=== PATIENT | male | born 1945 | race African-American/Black ===

== ENCOUNTER 2019-07-16 15:13 | Emergency (ER) | payer MEDICARE ==
[~2019-07-16] VITALS: Ht 180.3 cm; Wt 68.0 kg
--- NOTE | 2019-07-16 15:30 | NUR ---
ED Nurse Note: Pt brought into ED from home by ambulance. Pt c/o weakness, failure to thrive, decreased appetite. Pt a&ox4, pt set up on monitor. notified that pt HR 134 and RR 35, BP 134/78, 02 95%nc2. Pt
[2019-07-16 15:40] VITALS: BP 135/69
[2019-07-16 16:14] LABS: BASOPHILS % (AUTO) 0.8 % (0.0-2.0); HEMATOCRIT 31.5 % (42.0-52.0); HEMOGLOBIN 10.4 G/DL (14.2-18.0); LYMPHOCYTES % (AUTO) 7.2 % (20.0-45.0); MEAN CORPUSCULAR VOLUME 84 FL (80-99); PLATELET COUNT 456 K/UL (150-450); RED BLOOD COUNT 3.76 M/UL (4.70-6.10); WHITE BLOOD COUNT 7.9 K/UL (4.8-10.8)
--- NOTE | 2019-07-16 16:14 | Emergency Room Report ---
History of Present Illness General Chief Complaint: Generalized Weakness Source: Patient Present Illness HPI Disclaimer: Please note that this report is being documented using [employer] technology. This can lead to erroneous entry secondary to incorrect interpretation by the dictating instrument. HPI: 73-year-old male with no reported medical history resents for evaluation of dehydration and weakness. Patient reports weakness for approximately 7 days worsening making now difficult to ambulate. He denies any fever, chills, chest pain, vomiting, diarrhea. He notes it is difficult to walk up and down the stairs now and has a pain in the left thigh. There is no reported injury or fall. Per EMS, his landlord states he has been deteriorating over the past 6 months with significant weight loss. She suspects he is not taking care of himself, not eating, constantly losing weight. The patient states that he eats when he feels like it and does continue to drink fluids. He does endorse the weight loss. EMS found him tachycardic and tachypneic. He was started on oxygen as he was found hypoxic at 90%. Patient did not receive a flu shot this year. He reports a nonproductive cough occasionally. PMH: Patient denies PSH: Patient denies Allergies: Patient denies Social Hx: Denies Allergies: Coded Allergies: No Known Allergies (Unverified , 07/16/19) Nursing Documentation-PMH Past Medical History: No Stated History Review of Systems All Other Systems: negative except mentioned in HPI Physical Exam Vital Signs Date Time Temp Pulse Resp B/P (MAP) Pulse Ox O2 Delivery O2 Flow Rate FiO2 07/16/19 15:07 98.1 140 18 140/70 (93) 98 Nasal Cannula 4.0 General: Awake and alert, cachectic, frail-appearing HEENT: NC/AT. EOMI. anicteric sclera. Dry mucous membranes Cardiovascular: Tachycardic. S1 and S2 normal. No murmur appreciated Resp: Tachypnea, mild increased work of breathing. On nasal cannula 4 L. 99%. No cough, wheezing or crackles appreciated Abdomen: Abdomen is soft, nondistended. Nontender Skin: Intact. No abrasions, laceration or rash over the exposed skin MSK: Decreased bulk globally, cachectic.. Moving all extremities. No obvious deformity. No obvious deformity in the left lower extremity appreciated. No tenderness with palpation. Neuro: Awake and alert. Mentating appropriately. Procedures Critical Care Time Critical Care Time Total critical care time: Approximately 31 minutes Due to a high probability of clinically significant, life threatening deterioration, the patient required the highest level of preparedness to intervene emergently and I personally spent this critical care time directly and personally managing the patient. This critical care time included obtaining a history, examining the patient, pulse oximetry, ordering and reviewing studies , ordering treatments, evaluating response to treatment and updating management plan as needed, frequent reassessment and discussion with other providers as well as arranging for ultimate disposition. This critical to care time was performed to assess and manage the high probability of life-threatening deterioration that could result in multiorgan failure. This critical care time is separate from the separately billable procedures and treating other patients. Medical Decision Making Diagnostic Impression: Primary Impression: Pneumonia Additional Impressions: Lactic acidosis Hypoxia Weight loss ER Course 73-year-old male presents for evaluation of 1 week worsening weakness and reported weight loss of 6 months. He is frail-appearing, cachectic, tachycardic and tachypneic. EMS found him hypoxic at 90% which improved with supplemental oxygen. Patient notes a nonproductive cough and some shortness of breath as well as exertional dyspnea lately. Differential includes was not limited to ACS, malnutrition, dehydration, sepsis, pneumonia, bronchitis, influenza. We will start a broad metabolic and infectious work-up. IV fluids are started at 30 cc/kg. Patient is afebrile. He is comfortable on nasal cannula though remains tachypneic. He will require admission. Laboratory Tests Test 07/16/19 16:00 07/16/19 17:21 07/16/19 18:30 White Blood Count 7.9 K/UL (4.8-10.8) Red Blood Count 3.76 M/UL (4.70-6.10) L Hemoglobin 10.4 G/DL (14.2-18.0) L Hematocrit 31.5 % (42.0-52.0) L Mean Corpuscular Volume 84 FL (80-99) Mean Corpuscular Hemoglobin 27.5 PG (27.0-31.0) Mean Corpuscular Hemoglobin Concent 32.9 G/DL (32.0-36.0) Red Cell Distribution Width 13.0 % (11.6-14.8) Platelet Count 456 K/UL (150-450) H Mean Platelet Volume 5.3 FL (6.5-10.1) L Neutrophils (%) (Auto) 84.0 % (45.0-75.0) H Lymphocytes (%) (Auto) 7.2 % (20.0-45.0) L Monocytes (%) (Auto) 8.0 % (1.0-10.0) Eosinophils (%) (Auto) 0.0 % (0.0-3.0) Basophils (%) (Auto) 0.8 % (0.0-2.0) Sodium Level 145 MMOL/L (136-145) Potassium Level 3.6 MMOL/L (3.5-5.1) Chloride Level 106 MMOL/L (98-107) Carbon Dioxide Level 29 MMOL/L (21-32) Anion Gap 10 mmol/L (5-15) Blood Urea Nitrogen 24 mg/dL (7-18) H Creatinine 1.2 MG/DL (0.55-1.30) Estimate Glomerular Filtration Rate mL/min (>60) Glucose Level 144 MG/DL (74-106) H Lactic Acid Level 4.30 mmol/L (0.4-2.0) H 2.00 mmol/L (0.66-2.22) Calcium Level 8.5 MG/DL (8.5-10.1) Phosphorus Level 3.6 MG/DL (2.5-4.9) Magnesium Level 2.9 MG/DL (1.8-2.4) H Total Bilirubin 0.6 MG/DL (0.2-1.0) Aspartate Amino Transferase (AST) 31 U/L (15-37) Alanine Aminotransferase (ALT) 22 U/L (12-78) Alkaline Phosphatase 116 U/L (46-116) Total Creatine Kinase 41 U/L (26-308) Creatine Kinase MB < 0.5 NG/ML (0.0-3.6) Creatine Kinase MB Relative Index 1.2 Troponin I 0.000 ng/mL (0.000-0.056) Total Protein 6.6 G/DL (6.4-8.2) Albumin 1.8 G/DL (3.4-5.0) L Globulin 4.8 g/dL Albumin/Globulin Ratio 0.4 (1.0-2.7) L Thyroid Stimulating Hormone (TSH) 1.630 uiU/mL (0.358-3.740) Arterial Blood pH 7.488 (7.350-7.450) Arterial Blood Partial Pressure CO2 32.5 mmHg (35.0-45.0) L Arterial Blood Partial Pressure O2 79.9 mmHg (75.0-100.0) Arterial Blood HCO3 24.1 mmol/L (22.0-26.0) Arterial Blood Oxygen Saturation 94.7 % (95-100) L Arterial Blood Base Excess 1.0 (-2-2) Anthony Test Positive Microbiology Date/Time Source Procedure Growth Status 07/16/19 16:00 Nasal Nares - Final Complete 07/16/19 16:00 Nasal Nares - Final Complete EKG Diagnostic Results EKG Time: 15:20 Rate: tachycardiac Rhythm: NSR ST Segments: no acute changes Other Impression Sinus tachycardia, normal axis, normal intervals, irregular baseline makes it somewhat difficult to interpret though no obvious ischemic changes Rhythm Strip Diag. Results Rhythm Strip Time: 15:20 EP Interpretation: yes Rate: 130s Rhythm: no PVC's, no ectopy Chest X-Ray Diagnostic Results Chest X-Ray Diagnostic Results : Chest X-Ray Ordered: Yes # of Views/Limited/Complete: 1 View Indication: Shortness of Breath Interpretation: no effusion, no pneumothorax, other - Left lower lobe consolidation concerning for acute pneumonia Impression: Other - Possible left-sided pneumonia Electronically Signed by: Electronically signed by Dr. Cruz Cody Reevaluation Time: 19:25 Last Vital Signs Date Time Temp Pulse Resp B/P (MAP) Pulse Ox O2 Delivery O2 Flow Rate FiO2 07/16/19 15:07 98.1 140 18 140/70 (93) 98 Nasal Cannula 4.0 Reevaluation Impression Chest x-ray consistent with left lower lobe pneumonia. The patient's lactate was elevated but improving with IV fluids. Troponin is negative. Electrolytes , renal function and liver function are unremarkable. Patient is comfortable on his current nasal cannula. Heart rate is improving though still tachycardic. Saturating 100%. He will be transferred to [facility] where the patient is capitated. Stable for transfer. Disposition: [facility] Condition: Serious Cruz Cody MD Jul 16, 2019 16:13
[2019-07-16] MEDS ORDERED: cefTRIAXone 1 GM in NS 55 ML IVPB ONE (16:15)
[2019-07-16] MEDS ORDERED: Azithromycin 500 MG in NS 275 ML IV ONE (16:15)
[2019-07-16 16:33] LABS: ANION GAP 10 mmol/L (5-15); BLOOD UREA NITROGEN 24 mg/dL (7-18); CALCIUM 8.5 MG/DL (8.5-10.1); CARBON DIOXIDE 29 MMOL/L (21-32); CHLORIDE 106 MMOL/L (98-107); CREATININE 1.2 MG/DL (0.55-1.30); POTASSIUM 3.6 MMOL/L (3.5-5.1); SODIUM 145 MMOL/L (136-145)
[2019-07-16 16:42] LABS: ALANINE AMINOTRANSFERASE 22 U/L (12-78); ALBUMIN 1.8 G/DL (3.4-5.0); ALBUMIN/GLOBULIN RATIO 0.4 (1.0-2.7); ALKALINE PHOSPHATASE 116 U/L (46-116); ASPARTATE AMINO TRANSFERASE 31 U/L (15-37); BILIRUBIN,TOTAL 0.6 MG/DL (0.2-1.0); CKMB < 0.5 NG/ML (0.0-3.6); CREATINE KINASE 41 U/L (26-308); PHOSPHORUS 3.6 MG/DL (2.5-4.9)
[2019-07-16] MEDS ORDERED: Azithromycin 500mg Inj IV ONE (17:18)
[2019-07-16 17:24] VITALS: BP 135/69
--- NOTE | 2019-07-16 17:37 | Diagnostic Imaging Report ---
EXAM: XR Chest, 1 View CLINICAL HISTORY: SOB TECHNIQUE: Frontal view of the chest. COMPARISON: No relevant prior studies available. FINDINGS: Lungs: Nonspecific opacities in the left mid and lower lung. Bilateral pulmonary hyperinflation. Pleural space: Small left pleural effusion. No appreciable pneumothorax. Heart: No significant abnormality. No cardiomegaly. Mediastinum: No significant abnormality. Bones/joints: No acute osseous abnormality. IMPRESSION: 1. Left mid and lower lung opacities are concerning for an infectious or inflammatory process. 2. Small left pleural effusion.
--- NOTE | 2019-07-16 18:36 | NUR ---
ED Nurse Note: Dr Cody notified that pt hasn't urinated and provided sample yet and refuses straight cath.
[2019-07-16 19:43] VITALS: BP 128/68
--- NOTE | 2019-07-16 19:47 | NUR ---
[facility] [place] ambulance is here now to transport patient.
--- NOTE | 2019-07-16 19:53 | NUR ---
ED Nurse Note: report given to CHRISTIE Petty at [facility]
[2019-07-16 19:55] VITALS: BP 121/65
--- NOTE | 2019-07-16 19:55 | NUR ---
ED Nurse Note: Patient was transfered to [facility] due to pneumonia. Patient was transfered via private transportation [employer], [phone]. Patient took all belongings. AAO x4, VSS at this time.
== END 2019-07-16 19:55 | disposition short-term general hospital (02) ==
LOC: EDBD 15:13 → EMR 16:40
DX: J18.9 Pneumonia, unspecified organism (principal); E87.2 Acidosis; R09.02 Hypoxemia; R63.4 Abnormal weight loss; Z68.20 Body mass index [BMI] 20.0-20.9, adult; M79.652 Pain in left thigh; R00.0 Tachycardia, unspecified
CPT/HCPCS: 36415; 36600; 71045; 80053; 82550; 82553; 82803; 83605; 83735; 84100; 84443; 84484; 85025; 86710; 87040; 93005; 96361; 96365; 96367; 99291; J0456; J0696; J7030; J7050